=== PATIENT | male | born 1960 | race Asian ===

== ENCOUNTER 2020-06-17 09:16 | Outpatient (CLI) | payer BC | END 2020-06-17 09:17 | disposition home or self-care (01) | LOC: CSHCT 09:16 | PROVIDERS: ATTEND Internal Medicine Gastroenterology | DX: R10.9 Unspecified abdominal pain (principal) | CPT/HCPCS: 74177 ==

== ENCOUNTER 2020-07-05 08:42 | Outpatient (CLI) | payer BC | END 2020-07-05 08:43 | disposition home or self-care (01) | LOC: CSHNM 08:42 | PROVIDERS: ATTEND Internal Medicine Gastroenterology | DX: R10.9 Unspecified abdominal pain (principal) | CPT/HCPCS: 78227; A9537 ==

== ENCOUNTER 2022-12-19 09:48 | Outpatient (CLI) | payer BC | END 2022-12-19 09:49 | disposition home or self-care (01) | LOC: CSHRAD 09:48 | PROVIDERS: ATTEND Family Medicine Sports Medicine | DX: M54.50 Low back pain, unspecified (principal) | CPT/HCPCS: 72100; 72202 ==

== ENCOUNTER 2023-04-16 15:46 | Outpatient (CLI) | payer BC | END 2023-04-16 15:47 | disposition home or self-care (01) | LOC: CSHMRI 15:46 | PROVIDERS: ATTEND Family Medicine Sports Medicine | DX: M54.42 Lumbago with sciatica, left side (principal); M54.41 Lumbago with sciatica, right side; G89.29 Other chronic pain; M47.816 Spondylosis without myelopathy or radiculopathy, lumbar region | CPT/HCPCS: 72148 ==